=== PATIENT | male | born 1970 | race African-American/Black ===

== ENCOUNTER 2016-04-01 07:01 | Emergency (ER) | payer OTHER, MEDICAID ==
[~2016-04-01] VITALS: Ht 182.9 cm; Wt 113.4 kg
[2016-04-01 08:34] VITALS: BP 146/95
[2016-04-01] MEDS ORDERED: IBUPROFEN 800 MG TAB PO ONE (09:00)
== END 2016-04-01 10:37 | disposition home or self-care (01) ==
LOC: ER 07:06
DX: S16.1XXA Strain of muscle, fascia and tendon at neck level, initial encounter (principal); S39.012A Strain of muscle, fascia and tendon of lower back, initial encounter; S46.912A Strain of unspecified muscle, fascia and tendon at shoulder and upper arm level, left arm, initial encounter; V49.49XA Driver injured in collision with other motor vehicles in traffic accident, initial encounter; Y93.89 Activity, other specified; Y99.8 Other external cause status; Y92.410 Unspecified street and highway as the place of occurrence of the external cause
CPT/HCPCS: 71020; 72040; 72100; 73030; 73562

== ENCOUNTER 2017-09-03 17:06 | Emergency (ER) | payer OTHER, MEDICAID ==
[~2017-09-03] VITALS: Ht 185.4 cm; Wt 108.9 kg
[2017-09-03 22:10] VITALS: BP 126/78
[2017-09-03] MEDS ORDERED: KETOROLAC TROMETH 60MG/2ML VIAL IM ONE (23:00)
== END 2017-09-04 00:11 | disposition home or self-care (01) ==
LOC: ER 17:06
DX: S39.012A Strain of muscle, fascia and tendon of lower back, initial encounter (principal); S16.1XXA Strain of muscle, fascia and tendon at neck level, initial encounter; V43.52XA Car driver injured in collision with other type car in traffic accident, initial encounter; Y93.89 Activity, other specified; Y92.488 Other paved roadways as the place of occurrence of the external cause; Y99.8 Other external cause status
CPT/HCPCS: 72040; 72100; 73020; 73030

== ENCOUNTER → 2017-12-08 | Outpatient (CLI) | payer OTHER, MEDICAID | END | disposition home or self-care (01) | LOC: Rad HDHVI 08:02 | PROVIDERS: ATTEND Internal Medicine Cardiovascular Disease | DX: I31.3 Pericardial effusion (noninflammatory) (principal) | CPT/HCPCS: 93306 ==

== ENCOUNTER → 2017-12-26 | Outpatient (CLI) | payer OTHER, MEDICAID ==
[~2017-12-26] VITALS: Ht 182.9 cm; Wt 112.0 kg
== END | disposition home or self-care (01) ==
LOC: Rad HDHVI 08:23
PROVIDERS: ATTEND Internal Medicine
DX: I10 Essential (primary) hypertension (principal); R07.89 Other chest pain
CPT/HCPCS: 78452; 93017; 96374; A9500

== ENCOUNTER 2018-05-16 21:21 | Emergency (ER) | payer OTHER, MEDICAID ==
[~2018-05-16] VITALS: Ht 182.9 cm; Wt 111.1 kg
[2018-05-16 23:52] VITALS: BP 136/88
[2018-05-17] MEDS ORDERED: TETANUS-DIPTH-ACEL PERTUSSIS 0.5ML SYRG IM ONE (01:15)
== END 2018-05-17 01:30 | disposition home or self-care (01) ==
LOC: ER 21:21
DX: S01.112A Laceration without foreign body of left eyelid and periocular area, initial encounter (principal); W22.8XXA Striking against or struck by other objects, initial encounter; Y93.89 Activity, other specified; Y92.89 Other specified places as the place of occurrence of the external cause; Y99.8 Other external cause status
CPT/HCPCS: 12011; 90471; 90715

== ENCOUNTER 2018-05-25 07:24 | Emergency (ER) | payer OTHER, MEDICAID ==
[~2018-05-25] VITALS: Ht 182.9 cm; Wt 111.1 kg
[2018-05-25 07:30] VITALS: BP 130/88
== END 2018-05-25 08:02 | disposition home or self-care (01) ==
LOC: ER 07:24
DX: S01.112D Laceration without foreign body of left eyelid and periocular area, subsequent encounter (principal); X58.XXXD Exposure to other specified factors, subsequent encounter

== ENCOUNTER 2018-09-22 19:10 | Emergency (ER) | payer OTHER, MEDICAID ==
[~2018-09-22] VITALS: Ht 188 cm; Wt 86.2 kg
[2018-09-22 19:33] VITALS: BP 132/92
== END 2018-09-22 21:44 | disposition home or self-care (01) ==
LOC: ER 19:15
DX: S13.4XXA Sprain of ligaments of cervical spine, initial encounter (principal); R51 Headache; M25.512 Pain in left shoulder; V43.92XA Unspecified car occupant injured in collision with other type car in traffic accident, initial encounter; Y93.89 Activity, other specified; Y92.488 Other paved roadways as the place of occurrence of the external cause; Y99.8 Other external cause status
CPT/HCPCS: 73030; 73501